=== PATIENT | male | born 2000 ===

== ENCOUNTER 2025-08-11 05:42 | Emergency (ER) | payer SELFPAY ==
[~2025-08-11] VITALS: Ht 172.7 cm; Wt 63.5 kg
[~2025-08-11 05:42] MED LIST: HYDACE5 PO
[2025-08-11 06:38] LABS: Source, Urine Clean Catch
[2025-08-11 06:45] LABS: Bilirubin, Urine Neg (Neg); Color, Urine Yellow (P-Yellow); Glucose Qualitative, Urine Neg (Neg); Ketones, Urine 2+ (Neg); Leukocyte Esterase, Urine 2+ (Neg); Protein, Urine 2+ (Neg); Specific Gravity, Urine 1.015 (1.003-1.022); Urobilinogen, Urine NORM (Normal)
[2025-08-11 07:00] LABS: White Blood Cells, Urine 50-100 /hpf (0-5)
[2025-08-11] MEDS ORDERED: Vibramycin100 MG PO (07:44)
[2025-08-11 09:00] VITALS: BP 148/90
== END 2025-08-11 09:16 | disposition home or self-care (01) ==
LOC: ER 05:42
PROVIDERS: Emergency Medicine
DX: N45.1 Epididymitis (principal)
CPT/HCPCS: 76870; 81001; 87086; 96372; 99284-25; A9270; J0696